=== PATIENT | male | born 2000 | race Caucasian/White ===

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

== ENCOUNTER 2021-03-15 16:15 | Emergency (ER) | payer OTHER, MEDICAID, SELFPAY ==
[2021-03-15 16:31] VITALS: BP 143/85; PULSE 77; RESP 16; TEMP 36.9; O2SAT 98
--- NOTE | 2021-03-15 16:50 | XRR_ITS ---
PROCEDURE INFORMATION: Exam: XR Left Hand Exam date and time: 03/15/2021 4:50 PM Age: 21 years old Clinical indication: Injury or trauma; Other: Laceration; Work related; Hand; Left; Additional info: Fall/lacerations TECHNIQUE: Imaging protocol: XR Left hand. Views: 3 or more views. COMPARISON: No relevant prior studies available. FINDINGS: Bones/joints: The bones are intact and in normal alignment. Soft tissues: Bandage material over the mid and. No foreign body visualized. XR/XR hand LT min 3V* [id number] IMPRESSION: 1. No fracture identified.
[2021-03-15 17:05] VITALS: BP 125/86; PULSE 71; RESP 16; TEMP 36.8; O2SAT 97
--- NOTE | 2021-03-15 17:11 | ED_ITS ---
HPI - Wound/Laceration General: Chief Complaint: Wound/Laceration Stated Complaint: L hand lac Time Seen by Provider: 03/15/21 17:07 History of Present Illness: HPI narrative: Patient is a 21-year-old male comes to the ED with a laceration to left hand. Patient says he was at work and he was grabbing something off a metal cart and wanted the edges on the cart was sharp and he cut the palm area of his hand. He immediately rinsed it under some warm tap water and clean it out. He then applied pressure on it to help slow the bleeding. Patient is up-to-date on his tetanus. Associated symptoms: Denies chills, fever(s), nausea or vomiting Review of Systems Const: Denies: fever(s), chills or fatigue Eyes: Denies: change in vision or eye discomfort ENMT: Denies: throat pain, odynophagia, nasal discharge or nasal congestion Card: Denies: chest pain, palpitations, edema, swelling of feet/ankles, dyspnea on exertion or orthopnea Resp: Denies: dyspnea, productive cough or non-productive cough GI: Denies: abdominal pain, nausea, vomiting, diarrhea, constipation or hematochezia : Denies: flank pain, difficulty urinating, dysuria or hematuria Musc: Denies: neck pain, back pain or extremity swelling Skin/Breast: Reports: new lesions (Laceration left hand); Denies: rash Neuro: Denies: headache(s), numbness in extremities or weakness in extremities PFS ED PFSH: Social History Smoking and tobacco status: never smoked Physical Exam Const: COMMON NORMALS: no acute distress, patient oriented x3, healthy appearing and alert GENERAL APPEARANCE: cooperative and comfortable HENMT: COMMON NORMALS: normocephalic HEAD & SCALP: normocephalic MOUTH: Normal oral and palatal mucosa present THROAT: posterior oropharynx normal a nd uvula midline Neck/C-Spine: COMMON NORMALS: supple GENERAL: Yes normal visual inspection Resp: COMMON NORMALS: normal respiratory effort, No retractions, No use of accessory muscles and clear to auscultation bilaterally AUSCULTATION: clear to auscultation bilaterally Cardio: COMMON NORMALS: regular rate, regular rhythm, S1 normal heart sound present, S2 normal heart sound present, No gallops present (Cardio), No clicks present (Cardio), No murmurs present (Cardio) and Peripheral pulses 2+ throughout RATE: regular rate RHYTHM: regular rhythm HEART SOUNDS: S1 normal heart sound present and S2 normal heart sound present PERIPHERAL PULSES: Peripheral pulses 2+ throughout GI: COMMON NORMALS: Normal to inspection, nondistended, normoactive bowel sounds present, Soft to palpation, non-tender and no masses PALPATION: Yes Soft to palpation : COMMON NORMALS: Yes no CVA tenderness BLADDER/KIDNEY EXAM: Yes no CVA tenderness Back/Pelvis: COMMON NORMALS: no CVA tenderness Extremity: COMMON NORMALS: full ROM NARRATIVE EXTREMITY EXAM: Superficial linear laceration approximately 1 cm in length on palm of left hand. No active bleeding noted. GENERAL: Yes normal exam except as noted Neuro: COMMON NORMALS: patient oriented x3 and moves all extremities SENSORIUM/ORIENTATION: Yes alert Skin: NARRATIVE SKIN EXAM: Superficial linear laceration approximately 1 cm in length on palm of left hand. No active bleeding noted. GENERAL SKIN EXAM: dry skin Procedures Laceration Laceration 1: Site: hand Side (If applicable): left Size (cm): 1 Description: linear and clean Depth: simple, single layer Local Anesthetic: lidocaine 1% and with epi Amount of anesthesia used (mL): 5 Pre-repair: irrigated extensively (Normal saline and iodine wash) Skin layer closed with: nylon Size (cm): 4-0 Number of sutures: 3 Technique: simple, interrupted Course Vital Signs: Vital signs: Vital Signs Temperature 98.3 F 03/15/21 17:05 Pulse Rate 71 03/15/21 17:05 Respiratory Rate 16 03/15/21 17:05 Blood Pressure 125/86 03/15/21 17:05 Pulse Oximetry 97 03/15/21 17:05 MDM - Wound/Laceration MDM Narrative: Medical decision making narrative: Patient is a 21-year-old male had a laceration to palm of left hand. Laceration is superficial and approximate 1 cm in length. Patient has full range of motion in hand no concern for any tendon damage. Patient is up-to-date on his tetanus. X-ray of left hand showed no foreign bodies or fractures noted. Laceration site was irrigated extensively with normal saline and iodine wash. Lidocaine 1% with epi was used as local and 3 sutures were placed to close up laceration. Patient was discharged home with a prescription for Keflex. He was told to follow-up with his PCP to have his sutures removed and laceration site reevaluated in 7 to 10 days. Return to ED precautions given. Patient stood agree with plan. Imaging Data^: Xray Ortho: Attestation: I personally reviewed and interpreted this imaging study as follows: Radiologist's impression: [address] [id number] ReportSigned Patient: Immanuel Mccoy #: [id number]: 2000Acct#:[id number]/Sex: 21 / MADM Date: 03/15/21Loc: ERRoom/Bed:Attending Dr: Ordering Provider/Ordering MD: Gertrudis He Date of Service: 03/15/21 Procedure(s): XR hand LT min 3V* [id number] Accession Number(s): [id number] Report Number: [id number] PROCEDURE INFORMATION: Exam: XR Left Hand Exam date and time: 03/15/2021 4:50 PM Age: 21 years old Clinical indication: Injury or trauma; Other: Laceration; Work related; Hand; Left; Additional info: Fall/lacerations TECHNIQUE: Imaging protocol: XR Left hand. Views: 3 or more views. COMPARISON: No relevant prior studies available. FINDINGS: Bones/joints: The bones are intact and in normal alignment. Soft tissues: Bandage material over the mid and. No foreign body visualized. XR/XR hand LT min 3V* [id number] IMPRESSION: 1. No fracture identified. Dictated By:Jeanie Mattson By:Jeanie Mattson Date/Time:03/15/21 1851DD/ 1650 Discharge Plan Discharge Patient Disposition: Home Clinical Impression: Hand laceration Qualifiers: Encounter type: initial encounter Foreign body presence: without foreign body Laterality: left Qualified Code(s): S61.412A - Laceration without foreign body of left hand, initial encounter Condition: Stable Prescriptions: New cephalexin 500 mg capsule 500 mg PO Q6H 7 Days Qty: 28 RF: 0 No Action Tylenol Extra Strength 500 mg Tablet 1,000 mg PO PRN RF: 0 Claritin 10 mg Tablet 10 mg PO DAILY RF: 0 Discharge Orders: Discharge ED (Routine); Ordered 03/15/21 Ordered By: Diaz Gramajo Referrals: Khushboo Chester MD [Primary Care Provider] - Discharge Diet: Regular Discharge Activity: Resume usual activity Patient Instructions: Laceration (DC) Activity Restrictions/Additional Instructions: Take full course of antibiotics as prescribed. Keep laceration site clean and dry for the next 48 hours. Then after that you can clean and re-bandage daily. Watch for signs of infection such as redness, warmth, increased tenderness and puslike drainage. If you see the signs of infection return to the ED, urgent care or PCP for reevaluation. call your PCP to schedule a follow-up appointment for reevaluation and suture removal in about 10 days. Continue taking all home meds. Follow discharge plans as discussed. You can return to the ED if symptoms worsen. Coding Level of Care Code ED Quality Lab Technician for Rosy Fwmilly Exam Comprehensive
== END 2021-03-15 18:20 | disposition home or self-care (01) ==
PROVIDERS: Emergency Provider Physician Assistant; PCP Pediatrics Adolescent Medicine
DX: S61.412A Laceration without foreign body of left hand, initial encounter (principal); W26.8XXA Contact with other sharp object(s), not elsewhere classified, initial encounter; Y99.0 Civilian activity done for income or pay
CPT/HCPCS: 12001; 73130; 99283

== ENCOUNTER 2022-10-31 16:34 | Emergency (ER) | payer BC, MEDICAID, SELFPAY ==
[2022-10-31 17:07] VITALS: BP 129/77; PULSE 73; RESP 16; TEMP 36.8; O2SAT 98; BMI 31.6
--- NOTE | 2022-10-31 17:25 | W.ED.ABDPA2 ---
HPI - Abdominal Pain General: Chief Complaint: Abdominal Pain Stated Complaint: right abdominal pain, not feeling well Time Seen by Provider: 10/31/22 17:15 History of Present Illness: 22-year-old male patient comes in today with abdominal pain in the right lower quadrant of abdomen. Patient reports pain since yesterday. Patient reports some nausea but no vomiting. Patient reports no fever. Patient has no history of surgery of the abdomen. Patient has occasional seasonal allergies but do not take no routine medications. Associated Symptoms: Reports nausea; Denies fever(s) Review of Systems General: Reports: 10 or more systems reviewed and unremarkable except in HPI and below Const: Denies: fever(s) Card: Denies: chest pain Resp: Denies: dyspnea GI: Reports: abdominal pain and nausea PFSH ED PFSH: Social History Smoking and tobacco status: never smoked Physical Exam Const: COMMON NORMALS: alert HENMT: COMMON NORMALS: normocephalic HEAD & SCALP: normocephalic Neck/C-Spine: COMMON NORMALS: full ROM Resp: COMMON NORMALS: normal respiratory effort and clear to auscultation bilaterally AUSCULTATION: clear to auscultation bilaterally Cardio: COMMON NORMALS: regular rate and regular rhythm RATE: regular rate RHYTHM: regular rhythm GI: COMMON NORMALS: Soft to palpation AUSCULTATION: Yes normoactive bowel sounds PALPATION: Yes Soft to palpation and Yes Tenderness to palpation present (GI) Details: RLQ : COMMON NORMALS: Yes no CVA tenderness BLADDER/KIDNEY EXAM: Yes no CVA tenderness Back/Pelvis: COMMON NORMALS: no CVA tenderness and thoracic and lumbar spine normal to inspection Extremity: COMMON NORMALS: normal to inspection Neuro: SENSORIUM/ORIENTATION: Yes alert Skin: COMMON NORMALS: turgor normal GENERAL SKIN EXAM: turgor normal Course Vital Signs: Vital signs: Vital Signs Temperature 98.2 F 10/31/22 17:07 Pulse Rate 73 10/31/22 17:07 Respiratory Rate 16 10/31/22 17:07 Blood Pressure 129/77 10/31/22 17:07 Pulse Oximetry 98 10/31/22 17:07 Oxygen Delivery Me thod Room Air 10/31/22 17:07 MDM - Abdominal Pain Medical Decision Making 22-year-old male patient comes in today with right lower quadrant abdominal pain. On exam abdomen soft with normal active bowel sounds. Patient has tenderness in the right lower quadrant. Vital signs are normal. Differential diagnosis includes not limited to renal calculi, gallbladder disease, appendicitis, mesenteric adenitis, UTI, constipation. Laboratory values are unremarkable. CT of abdomen pelvis showed no signs of appendicitis or other abnormalities. Urinalysis was normal except for a pH of 8. Recommended monitoring for worsening symptoms such as high fever, blood in vomit or stool, or inability to hold fluids down. Patient and female significant other reported understanding. Lab Data 10/31/22 17:36 10/31/22 17:36 Labs/Radiology: Radiology Impressions Abdomen/Pelvis CT 10/31/22 17:[address]: [address] evidence of acute intra-abdominal or pelvic pathology. 2. Additional findings, as above. Laboratory Results WBC 6.0 10^3/uL (4.0-10.0) 10/31/22 17:36 RBC 5.28 10^6/uL (4.1-5.3) 10/31/22 17:36 Hgb 16.1 g/dL (11.7-16.6) 10/31/22 17:36 Hct 46.6 % (42.0-52.0) 10/31/22 17:36 MCV 88.3 fl (80-94) 10/31/22 17:36 MCH 30.5 pg (28.0-34.0) 10/31/22 17:36 MCHC 34.5 g/dL (30.0-36.0) 10/31/22 17:36 RDW 12.4 % (12.1-15.1) 10/31/22 17:36 Plt Count 218 10^3/cmm (130-400) 10/31/22 17:36 MPV 10.5 fL (7.4-10.4) H 10/31/22 17:36 Neut % (Auto) 51.7 % 10/31/22 17:36 Lymph % (Auto) 33.3 % 10/31/22 17:36 [place] % (Auto) 10.8 % 10/31/22 17:36 Eos % (Auto) 2.5 % 10/31/22 17:36 Baso % (Auto) 1.0 % 10/31/22 17:36 Neut # (Auto) 3.12 10^3/uL (1.8-7.7) 10/31/22 17:36 Lymph # (Auto) 2.0 10^3/uL (0.8-4.8) 10/31/22 17:36 [place] # (Auto) 0.7 10^3/uL (0.2-0.9) 10/31/22 17:36 Eos # (Auto) 0.2 10^3/uL (0.0-0.8) 10/31/22 17:36 Baso # (Auto) 0.1 10^3/uL (0.0-0.1) 10/31/22 17:36 Nucleated RBC % (auto) 0 % 10/31/22 17:36 Nucleated RBCs # 0.0 /100WBC 10/31/22 17:36 Sodium 139 mmol/L (136-145) 10/31/22 17:36 Potassium 4.5 mmol/L (3.5-5.1) 10/31/22 17:36 Chloride 101 mmol/L (98-107) 10/31/22 17:36 Carbon Dioxide 27 mmol/L (22-29) 10/31/22 17:36 Anion Gap 15.5 (5-19) 10/31/22 17:36 BUN 13 mg/dL (6-20) 10/31/22 17:36 Creatinine 0.9 mg/dL (0.7-1.2) 10/31/22 17:36 GFR Calculation 106.5 mL/min (90-130) 10/31/22 17:36 Glucose 93 mg/dL (65-115) 10/31/22 17:36 Calculated Osmolality 288 mOsm/kg (285-295) 10/31/22 17:36 Calcium 9.8 mg/dL (8.5-10.5) 10/31/22 17:36 Total Bilirubin 0.5 mg/dL (0.15-1.2) 10/31/22 17:36 AST 24 U/L (0-40) 10/31/22 17:36 ALT 30 U/L (0-41) 10/31/22 17:36 Alkaline Phosphatase 124 U/L (40-130) 10/31/22 17:36 C-Reactive Protein 3.0 mg/L (0.0-4.9) 10/31/22 17:36 Total Protein 7.6 g/dL (6.6-8.7) 10/31/22 17:36 Albumin 5.0 g/dL (3.5-5.2) 10/31/22 17:36 Globulin 2.6 g/dL (1.3-4.6) 10/31/22 17:36 Lipase 20 U/L (13-60) 10/31/22 17:36 Urine Color Straw (Yellow) 10/31/22 17:36 Urine Appearance Hazy (CLEAR) A 10/31/22 17:36 Urine pH 8 (5-7) H 10/31/22 17:36 Ur Specific [place] 1.010 (1.005-1.030) 10/31/22 17:36 Urine Protein Neg (Negative) 10/31/22 17:36 Urine Glucose (UA) Norm (Normal) 10/31/22 17:36 Urine Ketones Negative (Negative) 10/31/22 17:36 Urine Blood Neg (Negative) 10/31/22 17:36 Urine Nitrate Negative (Negative) 10/31/22 17:36 Urine Bilirubin Neg (Negative) 10/31/22 17:36 Prot Sulfosalicylic Acd Negative (Negative) 10/31/22 17:36 Urine Urobilinogen Norm mg/dL (Negative) 10/31/22 17:36 Ur Leukocyte Esterase Negative (Negative) 10/31/22 17:36 Urine RBC None /hpf (0-2) 10/31/22 17:36 Urine WBC Rare /hpf (0-5) 10/31/22 17:36 Ur Squamous Epith Cells None /hpf (0-5) 10/31/22 17:36 Amorphous Sediment 1+ /hpf 10/31/22 17:36 Urine Bacteria Trace /hpf (NONE) 10/31/22 17:36 Discharge Plan Discharge Patient Disposition: Home Clinical Impression: Abdominal pain Qualifiers: Abdominal location: right lower quadrant Qualified Code(s): R10.31 - Right lower quadrant pain Condition: Stable Prescriptions: No Action Tylenol Extra Strength 500 mg Tablet 1,000 mg PO PRN Claritin 10 mg Tablet 10 mg PO DAILY Discharge Orders: Discharge ED (Routine); Ordered 10/31/22 Ordered By: Cornelio Whittington Discharge Diet: Usual diet Discharge Activity: Increase activity as tolerated Patient Instructions: Abdominal Pain (ED) Activity Restrictions/Additional Instructions: Use acetaminophen or ibuprofen for pain. Activity as tolerated. Drink plenty of water and fluids. Start with a light diet and increase back to normal over the next few days his pain resolves. Follow-up with primary care for persistent pain. Return to ER for worsening symptoms such as high fever greater than 100.4, blood in vomit or stool, persistent vomiting, or new concerns. Coding Level of Care Code ED Floor Supervisor for Rosy Aleman
[2022-10-31 17:47] LABS: Basophils # 0.1 10^3/uL (0.0-0.1); Eosinophils # 0.2 10^3/uL (0.0-0.8); Eosinophils % 2.5 %; Hematocrit 46.6 % (42.0-52.0); Hemoglobin 16.1 g/dL (11.7-16.6); Lymphocytes % 33.3 %; Mean Corpuscular HGB Conc 34.5 g/dL (30.0-36.0); Mean Corpuscular Hemoglobin 30.5 pg (28.0-34.0); Mean Corpuscular Volume 88.3 fl (80-94); Mean Platelet Volume 10.5 fL (7.4-10.4); Monocytes # 0.7 10^3/uL (0.2-0.9); Monocytes % 10.8 %; Neutrophils # 3.12 10^3/uL (1.8-7.7); Neutrophils % 51.7 %; Nucleated Red Blood Cells % 0 %; Platelet Count 218 10^3/cmm (130-400); Red Blood Count 5.28 10^6/uL (4.1-5.3); Red Cell Distribution Width 12.4 % (12.1-15.1)
--- NOTE | 2022-10-31 17:50 | CTR_ITS ---
PROCEDURE INFORMATION: Exam: CT Abdomen And Pelvis With Contrast Exam date and time: 10/31/2022 6:02 PM Age: 22 years old Clinical indication: Abdominal pain; Localized; Right lower quadrant (rlq); Patient HX: C/O rlq pain TECHNIQUE: Imaging protocol: Computed tomography of the abdomen and pelvis with contrast. Axial, coronal and sagittal reformatted images were created and reviewed. Radiation optimization: All CT scans at this facility use at least one of these dose optimization techniques: automated exposure control; mA and/or kV adjustment per patient size (includes targeted exams where dose is matched to clinical indication); or iterative reconstruction. Contrast material: OMNI 350; Contrast volume: 100 ml; Contrast route: INTRAVENOUS (IV); REPORTING DATA: Count of CT and Cardiac NM exams in prior 12 months: This patient has received 0 known CTs and 0 known cardiac nuclear medicine studies in the 12 months prior to the current study. COMPARISON: CR XR chest 2V* [id number] 04/03/2022 11:08 AM RADIATION DOSE METRICS: Total DLP (mGy-cm): 841.93 FINDINGS: Liver: Unremarkable. Gallbladder and bile ducts: No radiodense gallstones. No biliary ductal dilatation. Pancreas: Unremarkable. Spleen: Unremarkable. Adrenal glands: Normal. No mass. Kidneys and ureters: No mass. No radiodense calculi. No hydronephrosis. Stomach and bowel: No bowel wall thickening. No obstruction. No pneumatosis. Appendix: Normal. Intraperitoneal space: No free fluid. No organized fluid collection. No free air. Vasculature: Unremarkable. No aneurysm. Lymph nodes: No pathologically enlarged lymph nodes. Urinary bladder: Unremarkable as visualized. Reproductive: Unremarkable. Bones/joints: No acute osseous abnormality. Soft tissues: Tiny, fat containing umbilical hernia. CT/CT abdomen pelvis w con* [id number]: 1[address] No CT evidence of acute intra-abdominal or pelvic pathology. 2. Additional findings, as above.
[2022-10-31] MEDS: iohexol 350 mg/mL 500 mL Btl (per mL) IV (18:00)
[2022-10-31 18:05] LABS: Alanine Aminotransferase 30 U/L (0-41); Alkaline Phosphatase 124 U/L (40-130); Anion Gap 15.5 (5-19); Aspartate Amino Transferase 24 U/L (0-40); Blood Urea Nitrogen 13 mg/dL (6-20); Calcium 9.8 mg/dL (8.5-10.5); Carbon Dioxide 27 mmol/L (22-29); Chloride 101 mmol/L (98-107); Globulin 2.6 g/dL (1.3-4.6); Glomerular Filtration Rate 106.5 mL/min (90-130); Glucose 93 mg/dL (65-115); Lipase 20 U/L (13-60); Osmolality Calculated 288 mOsm/kg (285-295); Potassium 4.5 mmol/L (3.5-5.1); Sodium 139 mmol/L (136-145); Total Bilirubin 0.5 mg/dL (0.15-1.2); Total Protein 7.6 g/dL (6.6-8.7)
[2022-10-31 18:31] LABS: Urine Appearance Hazy (CLEAR); Urine Color Straw (Yellow); pH Urine 8 (5-7)
[2022-10-31 18:32] LABS: Add Urine Microscopic? YES; Bilirubin Urine Neg (Negative); Blood Urine Neg (Negative); Glucose Urine UA Norm (Normal); Ketones Urine Negative (Negative); Leukocyte Esterase Urine Negative (Negative); Nitrate Urine Negative (Negative); Protein Urine Neg (Negative); Sulfosalicylic Acid Urine Negative (Negative); Urobilinogen Urine Norm (Negative); WBC Urine RARE /hpf (0-5)
[2022-10-31 18:33] LABS: Add Urine Culture? No; Amorphous Sediment Urine 1+ /hpf; Bacteria Urine TRACE /hpf
[2022-10-31 18:51] VITALS: RESP 18
== END 2022-10-31 18:53 | disposition home or self-care (01) ==
PROVIDERS: Emergency Provider Nurse Practitioner Family
DX: R10.31 Right lower quadrant pain (principal)
CPT/HCPCS: 74177; 80053; 81001; 83690; 85025; 86140; 99285; Q9967